=== PATIENT | male | born 1975 | race Two or more races ===

== ENCOUNTER 2021-09-26 10:08 | Outpatient (REF) | payer MEDICAID, SELFPAY ==
[2021-09-26 11:53] LABS: MANUAL DIFF FLAG NO
[2021-09-26 12:02] LABS: Basophils Percent Auto 0.4 % (0-2); Eosinophils Absolute Auto 0.3 X10*3/uL (0.0-0.4); Eosinophils Percent Auto 2.8 % (0-4); Hematocrit 44.3 % (42.0-52.0); Imm Gran Abs Auto 0.04 X10*3/uL (0.00-0.03); Imm Gran Pct Auto 0.4 % (0.0-0.4); Lymphocytes Absolute Auto 1.9 X10*3/uL (1.2-4.9); Mean Corpuscular HGB Conc 33.9 g/dl (31.0-36.0); Mean Corpuscular Hemoglobin 30.2 pg (27.0-33.0); Mean Corpuscular Volume 89.3 fL (80.0-98.0); Mean Platelet Volume 9.7 fL (9.4-12.4); Monocytes Absolute Auto 0.5 X10*3/uL (0.1-1.2); Monocytes Percent Auto 5.2 % (2-11); Neutrophils Absolute Auto 6.4 x10*3/uL (2.0-8.3); Neutrophils Percent Auto 70.2 % (45-73); Platelet Count 243 X10*3/uL (160-400); Red Blood Count 4.96 X10*6/uL (4.60-5.80); Red Cell Distribution Width 13.3 % (11.0-16.0); White Blood Count 9.1 X10*3/uL (4.8-10.8)
[2021-09-26 12:36] LABS: Alanine Aminotransferase 26 U/L (0-40); Albumin Level 4.3 g/dL (3.5-5.0); Alkaline Phosphatase 86 U/L (39-117); Anion Gap 13 (12-20); Aspartate Amino Transferase 19 U/L (5-37); Bilirubin Total 0.3 mg/dL (0.0-1.0); Blood Urea Nitrogen 7 mg/dL (9-16); Calcium 9.4 mg/dL (8.4-10.2); Carbon Dioxide 27 mmol/L (22-29); Chloride 106 mmol/L (96-108); Estimated Glomerular Filt Rate > 60; Glucose Random 109 mg/dL (60-115); Potassium 4.7 mmol/L (3.3-5.1); Sodium 141 mmol/L (135-145); Total Protein 7.2 g/dL (6.5-8.0)
== END 2021-09-26 10:09 | disposition home or self-care (01) ==
LOC: HO.LAB 10:08
PROVIDERS: PCP Nurse Practitioner; Referring Provider Nurse Practitioner; Visit Provider Nurse Practitioner
DX: Z01.818 Encounter for other preprocedural examination (principal)
CPT/HCPCS: 36415; 80053; 85025; 99202

== ENCOUNTER 2022-06-05 10:09 | Day surgery (SDC) | payer MEDICAID, SELFPAY ==
[2022-01-24 12:13] VITALS: BMI 33.2
--- NOTE | 2022-01-29 12:20 | HO.ANESPROP2 ---
HPI - Anesthesia Eval Consult details Narrative: 46yo M for Colonoscopy Suboxone daily PMFSH Active Problems Active Problems: All Active Problems (Updated 01/24/22 @ 12:03 by Delmis Cho, RN) Colon cancer screening (Acute) Past Medical History Medical History (Updated 01/24/22 @ 12:03 by Delmis Cho, RN) Anxiety and depression Bipolar disorder GERD (gastroesophageal reflux disease) Opioid dependence Smoker Umbilical hernia Surgical History Surgical History (Updated 01/24/22 @ 12:13 by Delmis Cho RN) No pertinent past surgical history Social History Social History Are you a primary progressive care nurse to a significant other at home: No Do you presently have visiting nurse or other home services: No Patient Tobacco Use Status: Current everyday Tobacco user Tobacco use type: Cigarette Cigarette Packs Per Day: 0.5 Cigarettes Per Day: 10.0 Years Smoked: since 16 yrs old Smoked in Last 30 Days: Yes Patient Interested in Nicotine Replacement: Yes Use of substances other than those prescribed or required for medical reasons: Yes Substance Use Type Other:: Hx opioid abuse- on Suboxone Substance Use Frequency: Daily Have you been hit, kicked, punched, or otherwise hurt by someone within the past year? If so, by whom?: No Are you DNR?: No Advance Directives: No Advance Directives Information Provided: No Advance Directives on File: No Recently lost weight without trying: No Eating poorly because of decreased appetite: No Nutrition Risks: No Nutritional Risk Meds Allergies Allergy/AdvReac Type Severity Reaction Status Date / Time No Known Allergies Allergy Verified 01/24/22 11:57 Home Medications Medication Instructions Recorded Confirmed Last Taken Type buprenorphine 8 mg-naloxone 2 mg 10 mg SUBLINGUAL DAILY 09/26/21 01/24/22 Unknown History sublingual film (Suboxone) doxepin 150 mg capsule 150 mg PO BEDTIME 09/26/21 01/24/22 Unknown History famotidine 20 mg tablet 20 mg PO BID 09/26/21 01/24/22 Unknown History naloxone 4 mg/actuation nasal 0 spray INTRANASAL 09/26/21 Unknown History spray (Narcan) nicotine (polacrilex) 4 mg buccal 4 mg PO Q2H PRN 09/26/21 01/24/22 Unknown History lozenge paroxetine HCl 20 mg tablet 20 mg PO DAILY 09/26/21 01/24/22 Unknown History risperidone 3 mg tablet 3 mg PO BEDTIME 09/26/21 Unknown History sertraline 100 mg tablet 100 mg PO QAM 09/26/21 01/24/22 Unknown History albuterol sulfate 90 mcg/actuation 2 puff PO Q4-6H PRN 01/24/22 01/24/22 Unknown History aerosol inhaler (ProAir HFA) Exam Exam Date and Time: January 29, 2022 1220 Height,Weight and Vital Signs: Height 5 ft 7 in Weight 96.162 kg Narrative Narrative: Laboratory Tests 09/26/21 09/26/21 11:51 11:51 WBC 9.1 Hgb 15.0 Hct 44.3 Plt Count 243 Sodium 141 Potassium 4.7 Chloride 106 Carbon Dioxide 27 BUN 7 L Creatinine 0.82 Assessment and Plan Assessment Anesthesia Assessment: Chart Reviewed
--- NOTE | 2022-01-30 08:43 | PC.NURSE ---
Patient contacted via phone yesterday w/ assistance of [facility] regarding procedure time and arrival time. Due here 0815, I have attempted to call as of 829 x2, no answer, voice mail is not set up.
--- NOTE | 2022-01-30 10:08 | PC.NURSE ---
Patient called and spoke with [employer]. Patient is cancelling procedure and will contact the office to reschedule.
--- NOTE | 2022-06-04 09:38 | HO.ANESPROP2 ---
Documented by User: Mena Hussein NP 06/04/22 09:38 HPI - Anesthesia Eval Consult details Narrative: 47yo M for Colonoscopy Suboxone daily PMFSH Active Problems Active Problems: All Active Problems (Updated 01/24/22 @ 12:03 by Delmis Cho RN) Colon cancer screening (Acute) Past Medical History Medical History Anxiety and depression Bipolar disorder GERD (gastroesophageal reflux disease) Opioid dependence Smoker Umbilical hernia Surgical History Surgical History No pertinent past surgical history Social History Social History Are you a primary career and technology education teacher to a significant other at home: No Do you presently have visiting nurse or other home services: No Patient Tobacco Use Status: Current everyday Tobacco user Tobacco use type: Cigarette Cigarette Packs Per Day: 0.5 Cigarettes Per Day: 10.0 Years Smoked: since 16 yrs old Smoked in Last 30 Days: Yes Patient Interested in Nicotine Replacement: No Use of substances other than those prescribed or required for medical reasons: Yes Substance Use Type Other:: Hx opioid abuse- on Suboxone Substance Use Frequency: Daily Have you been hit, kicked, punched, or otherwise hurt by someone within the past year? If so, by whom?: No Are you DNR?: No Advance Directives: No Advance Directives Information Provided: Yes Advance Directives on File: No Recently lost weight without trying: No Eating poorly because of decreased appetite: No Nutrition Risks: No Nutritional Risk Meds Allergies Allergy/AdvReac Type Severity Reaction Status Date / Time No Known Allergies Allergy Verified 06/05/22 10:29 Home Medications Medication Instructions Recorded Confirmed Last Taken Type buprenorphine 8 mg-naloxone 2 mg 10 mg sublingual DAILY 09/26/21 01/24/22 Unknown History sublingual film (Suboxone) doxepin 150 mg capsule 150 mg PO BEDTIME 09/26/21 01/24/22 Unknown History famotidine 20 mg tablet 20 mg PO BID indigestion 09/26/21 01/24/22 Unknown History naloxone 4 mg/actuation nasal 0 spray intranasal 09/26/21 Unknown History spray (Narcan) nicotine (polacrilex) 4 mg buccal 4 mg PO Q2H PRN Smoking Cessation 09/26/21 01/24/22 Unknown History lozenge paroxetine HCl 20 mg tablet 20 mg PO DAILY 09/26/21 01/24/22 Unknown History risperidone 3 mg tablet 3 mg PO BEDTIME 09/26/21 Unknown History sertraline 100 mg tablet 100 mg PO QAM 09/26/21 01/24/22 Unknown History albuterol sulfate 90 mcg/actuation 2 puff PO Q4-6H PRN dyspnea 01/24/22 01/24/22 Unknown History aerosol inhaler (ProAir HFA) Exam Exam Date and Time: June 04, 2022 0938 Height,Weight and Vital Signs: Height 5 ft 7 in Weight 96.162 kg Assessment and Plan Assessment Anesthesia Assessment: Chart Reviewed Documented by User: Cali Dias MD 06/05/22 11:06 [facility] Past Medical History Medical History Anxiety and depression Bipolar disorder GERD (gastroesophageal reflux disease) Opioid dependence Smoker Umbilical hernia Family History Family history of problems with anesthesia: No Surgical History Surgical History No pertinent past surgical history History of Problems with Anesthesia: No Social History Social History Are you a primary career and technology education teacher to a significant other at home: No Do you presently have visiting nurse or other home services: No Patient Tobacco Use Status: Current everyday Tobacco user Tobacco use type: Cigarette Cigarette Packs Per Day: 0.5 Cigarettes Per Day: 10.0 Years Smoked: since 16 yrs old Smoked in Last 30 Days: Yes Patient Interested in Nicotine Replacement: No Use of substances other than those prescribed or required for medical reasons: Yes Substance Use Type Other:: Hx opioid abuse- on Suboxone Substance Use Frequency: Daily Have you been hit, kicked, punched, or otherwise hurt by someone within the past year? If so, by whom?: No Are you DNR?: No Advance Directives: No Advance Directives Information Provided: Yes Advance Directives on File: No Recently lost weight without trying: No Eating poorly because of decreased appetite: No Nutrition Risks: No Nutritional Risk Meds Allergies Allergy/AdvReac Type Severity Reaction Status Date / Time No Known Allergies Allergy Verified 06/05/22 10:29 Home Medications Medication Instructions Recorded Confirmed Last Taken Type buprenorphine 8 mg-naloxone 2 mg 10 mg sublingual DAILY 09/26/21 01/24/22 Unknown History sublingual film (Suboxone) doxepin 150 mg capsule 150 mg PO BEDTIME 09/26/21 01/24/22 Unknown History famotidine 20 mg tablet 20 mg PO BID indigestion 09/26/21 01/24/22 Unknown History naloxone 4 mg/actuation nasal 0 spray intranasal 09/26/21 Unknown History spray (Narcan) nicotine (polacrilex) 4 mg buccal 4 mg PO Q2H PRN Smoking Cessation 09/26/21 01/24/22 Unknown History lozenge paroxetine HCl 20 mg tablet 20 mg PO DAILY 09/26/21 01/24/22 Unknown History risperidone 3 mg tablet 3 mg PO BEDTIME 09/26/21 Unknown History sertraline 100 mg tablet 100 mg PO QAM 09/26/21 01/24/22 Unknown History albuterol sulfate 90 mcg/actuation 2 puff PO Q4-6H PRN dyspnea 01/24/22 01/24/22 Unknown History aerosol inhaler (ProAir HFA) Exam Airway Mallampati Class: III TM Dist: >3cm Neck ROM: Full Heart: rrr Lungs: slight wheezes Assessment and Plan Final Anesthetic Review Family History of Problems with Anesthesia: No History of Problems with Anesthesia: No ASA Class: II Final Preanesthetic Review: No Changes in Pt Med Stat, Meds/Allgs Chart Reviewed, Consent Obtained/Reviewed and Anes Risks/Benef Reviewed
[2022-06-05 10:38] LABS: Amphetamine Screen Urine Not Detected (Not Detect); Barbiturates, Urine Not Detected (Not Detect); Benzodiazepines Screen Urine Not Detected (Not Detect); Cannabinoid Screen Urine POSITIVE (Not Detect); Cocaine Screen Urine Not Detected (Not Detect); Fentanyl, urine Not Detected (Not Detect); Opiate Screen Urine Not Detected (Not Detect); Phencyclidine Screen Urine Not Detected (Not Detect)
[2022-06-05] MEDS: Lactated Ringers 1,000 ML 100 ML IVCONT (10:45)
[2022-06-05] MEDS: Sodium Phosphate,Mono-Dibasic 133 ML ENEMA PR (10:45)
[2022-06-05 10:49] VITALS: BP 149/80; PULSE 96; RESP 18; TEMP 36.6; O2SAT 95
--- NOTE | 2022-06-05 10:53 | P.HPSUR_ITS ---
Pre-Procedural Eval Section A Date of Service: 06/05/22 Section B Chief Complaint: Screening Relevant Family History (Specify if Yes): No Relevant Social History: Tobacco Use Present Medications: see Short Stay Collaborative assessment Medical History: Significant History (Bipolar disorder/ anxiety /depression Opioid dependence -Suboxone therapy Smoker Umbilical hernia GERD) History of Previous Operations: No relevant previous surgery Allergies: Allergies Allergy/AdvReac Type Severity Reaction Status Date / Time No Known Allergies Allergy Verified 06/05/22 10:29 Review of Systems Sugical H&P ROS: Negative: Constitution, Cardiovascular, Respiratory, Ne urological, Psychiatric, Hem-Onc, Allergic/Immunologic, Gastrointestinal, Genitourinary, Musculoskeletal, Integumentary, Endocrine and Eyes/Ears/Nose/Throat Exam Surgical H&P Exam: Normal: HEENT, Normal: Heart, Normal: Lungs, Normal: Extremities, Normal: Abdomen, Normal: Skin and Normal: Neurological Plan Diagnosis/Plan: Unchanged I have reviewed the history and physical and performed a pertinent physical examination on my patient. No changes have occurred unless specified.
--- NOTE | 2022-06-05 11:43 | W.PM.OPN ---
Operative Note Operative Note Date of Service: 06/05/22 Narrative: Operative Information Procedure Description: Colonoscopy Indication: screening Anesthesia: MAC COLONOSCOPY Instrument: Olympus variable stiffness pediatric scope 190L Colonoscopy Monitoring: Vital signs and clinical assessment, continuous EKG monitoring, Pulse oximetry, Carbon Dioxide monitoring and blood pressure monitoring were done throughout the procedure. Colon withdrawal time was 15 minutes. Procedure: The patient was placed in the left lateral decubitis position and pre-procedure medications were administered. After a digital rectal examination of the ano-rectum, the video colonoscope was inserted into the rectum and advanced through the colon to the cecum/TI. The colonoscope was slowly withdrawn in a retrograde panoramic fashion and the colon mucosa was carefully examined including a retroflexed view of the rectum. Findings and interventions are described below. Procedure Difficulty: easy Findings: Terminal Ileum-not intubated Cecum:normal Ascending Colon: normal Transverse Colon -normal Descending Colon: 14 mm sessile polyp removed with cold snare Sigmoid Colon: x 3 sessile polyps 8-10 mm removed with cold snare, x1 clip applied to one area for hemostasis. Rectum: Retroflexion with small internal hemorrhoids, grade I Anorectum - normal Colon preparation: [place] Bowel Preparation Scale Right colon; 0 Transverse colon: 1 Left colon; 2 (0 = Unprepared colon segment with mucosa not seen due to solid stool that cannot be cleared. 1 = Portion of mucosa of the colon segment seen, but other areas of the colon segment not well seen due to staining, residual stool and/or opaque liquid. 2 = Minor amount of residual staining, small fragments of stool and/or opaque liquid, but mucosa of colon segment seen well. 3 = Entire mucosa of colon segment seen well with no residual staining, small fragments of stool or opaque liquid) Impression and Post Procedure Diagnosis: polyps internal hemorrhoids diverticular disease Plan: High fiber diet leaflet Avoid straining at stool, epsom salts and sitz bath, anusol supps or cream Repeat Colonoscopy in 6-12 months due to poor prep or earlier if clinically indicated Above findings were reviewed with the patient and relevant handouts were provided if indicated.
[2022-06-05 11:47] VITALS: BP 122/84; PULSE 88; RESP 16; TEMP 36.7; O2SAT 97
[2022-06-05 12:02] VITALS: BP 114/86; PULSE 90; RESP 18; TEMP 36.7; O2SAT 95
== END 2022-06-05 12:20 | disposition home or self-care (01) ==
PROVIDERS: Nurse Practitioner; PCP Nurse Practitioner; Visit Provider Internal Medicine Gastroenterology
PROC: 0DJD8ZZ Inspection of Lower Intestinal Tract, Via Natural or Artificial Opening Endoscopic (ICD-10-PCS; CPT 45378; principal; 2022-06-05 10:50)
DX: Z12.11 Encounter for screening for malignant neoplasm of colon (principal); D12.4 Benign neoplasm of descending colon; K63.5 Polyp of colon; K57.30 Diverticulosis of large intestine without perforation or abscess without bleeding; K64.8 Other hemorrhoids; K64.0 First degree hemorrhoids; K21.9 Gastro-esophageal reflux disease without esophagitis; F31.9 Bipolar disorder, unspecified; R62.50 Unspecified lack of expected normal physiological development in childhood; F11.20 Opioid dependence, uncomplicated; F17.210 Nicotine dependence, cigarettes, uncomplicated
CPT/HCPCS: 45385; 80307; 88305

== ENCOUNTER → 2022-07-13 13:34 | Outpatient (BNVA) | payer MEDICAID, SELFPAY | PROVIDERS: PCP Nurse Practitioner; Referring Provider Nurse Practitioner; Visit Provider Nurse Practitioner | DX: D12.4 Benign neoplasm of descending colon (principal); K63.5 Polyp of colon; K64.0 First degree hemorrhoids; Z98.890 Other specified postprocedural states | CPT/HCPCS: 99212 ==

== ENCOUNTER → 2022-10-04 14:43 | Outpatient (BNVA) | payer MEDICAID, SELFPAY | PROVIDERS: PCP Nurse Practitioner; Visit Provider Surgery | DX: K43.9 Ventral hernia without obstruction or gangrene (principal) | CPT/HCPCS: 99202 ==

== ENCOUNTER → 2022-11-12 06:16 | Day surgery (SDC) | payer MEDICAID, SELFPAY ==
[2022-11-07 11:02] VITALS: BMI 34.2
[2022-11-12 07:58] VITALS: BP 108/58; PULSE 55; RESP 18; TEMP 36.7; O2SAT 96
[2022-11-12] MEDS: Lactated Ringers 1,000 ML 100 ML IVCONT (08:03)
[2022-11-12 08:07] LABS: Amphetamine Screen Urine Not Detected (Not Detect); Barbiturates, Urine Not Detected (Not Detect); Benzodiazepines Screen Urine Not Detected (Not Detect); Cannabinoid Screen Urine POSITIVE (Not Detect); Cocaine Screen Urine Not Detected (Not Detect); Fentanyl, urine POSITIVE (Not Detect); Opiate Screen Urine Not Detected (Not Detect); Phencyclidine Screen Urine Not Detected (Not Detect)
--- NOTE | 2022-11-12 08:25 | PC.NURSE ---
Dr. Zayas and Joseph from customs entry writer services explained to patient that toxicology screen was positive for fentanyl and that surgery needs to be cancelled today. Patient educated regarding fentanyl.
== END ==
PROVIDERS: Anesthesiology; PCP Registered Nurse; Visit Provider Surgery
DX: K43.9 Ventral hernia without obstruction or gangrene (principal); Z53.8 Procedure and treatment not carried out for other reasons; R82.5 Elevated urine levels of drugs, medicaments and biological substances
CPT/HCPCS: 80307; J0690; J2250; J3010

== ENCOUNTER 2022-12-17 05:38 | Day surgery (SDC) | payer MEDICAID, SELFPAY ==
[2022-12-11 15:31] VITALS: BMI 34.2
[2022-12-17] VITALS (7 sets, daily range): BP systolic 112–140; BP diastolic 68–91; PULSE 65–83; RESP 14–18; TEMP 36.3–36.6; O2SAT 95–98
[2022-12-17 06:34] LABS: Amphetamine Screen Urine Not Detected (Not Detect); Barbiturates, Urine Not Detected (Not Detect); Benzodiazepines Screen Urine Not Detected (Not Detect); Cannabinoid Screen Urine POSITIVE (Not Detect); Cocaine Screen Urine Not Detected (Not Detect); Fentanyl, urine Not Detected (Not Detect); Opiate Screen Urine Not Detected (Not Detect); Phencyclidine Screen Urine Not Detected (Not Detect)
--- NOTE | 2022-12-17 07:06 | P.HPSUR_ITS ---
Pre-Procedural Eval Section A Date of Service: 12/17/22 The patient is an INPATIENT: No Changes since office visit: Yes Patient answered all questions; No Cold of Flu in the past 2 weeks, No New Medical Problems and No Changes in Medication The History & Physical has been completed within 30 days and I have reviewed it.: No Section B Chief Complaint: Ventral hernia without obstruction or gangrene Details of Present Illness: No changes since original examination Relevant Family History (Specify if Yes): No Relevant Social History: Tobacco Use Medical History: Significant History (bipolar, opioid dependency, GERD) History of Previous Operations: No relevant previous surgery Allergies: Allergies Allergy/AdvReac Type Severity Reaction Status Date / Time No Known Allergies Allergy Verified 10/04/22 15:23 Review of Systems Sugical H&P ROS: Negative: Constitution, Cardiovascular, Respiratory, Neurological, Psychiatric, Hem-Onc, Allergic/Immunologic, Gastrointestinal, Genitourinary, Musculoskeletal, Integumentary, Endocrine and Eyes/Ears/Nose/Throat Exam Surgical H&P Exam: Normal: HEENT, Normal: Heart, Normal: Lungs, Normal: Ext remities, Normal: Abdomen, Normal: Skin and Normal: Neurological Plan Diagnosis/Plan: Unchanged I have reviewed the history and physical and performed a pertinent physical examination on my patient. No changes have occurred unless specified. Time Spent With Patient Time: Total time managing care of this patient today ____ minutes.
--- NOTE | 2022-12-17 07:47 | P.CONAN_ITS ---
COUNT INCLUDES THE [facility] Active Problems Active Problems: All Active Problems (Updated 10/05/22 @ 13:46 by Dru Lawson MD) Colon cancer screening (Acute) Ventral hernia (Acute) Past Medical History Medical History (Updated 10/05/22 @ 13:46 by Dru Lawson MD) Anxiety and depression Bipolar disorder GERD (gastroesophageal reflux disease) Opioid dependence Smoker Umbilical hernia Family History Family History Paternal Grandmother Cancer of unknown origin Family history of problems with anesthesia: No Surgical History Surgical History (Updated 11/07/22 @ 10:48 by Sarah Lovelace RN) H/O colonoscopy History of Problems with Anesthesia: No Social History Social History (Updated 12/11/22 @ 15:23 by Sarah Lovelace RN) Are you a primary health care legal assistant to a significant other at home: No Do you presently have visiting nurse or other home services: No Alcohol intake: never Patient Tobacco Use Status: Current everyday Tobacco user Tobacco use type: Cigarette Cigarette Packs Per Day: 0.5 Cigarettes Per Day: 10 Years Smoked: 31 Use of substances other than those prescribed or required for medical reasons: Yes Substance Use Type: Marijuana and Opiates Substance Use Type Other:: current marijuana/opiates in past-taking suboxone Substance Use Frequency: Chronic Longstanding Have you been hit, kicked, punched, or otherwise hurt by someone within the past year? If so, by whom?: No Are you DNR?: No Advance Directives: No Advance Directives Information Provided: Yes (brochure mailed) Advance Directives on File: No Recently lost weight without trying: No Eating poorly because of decreased appetite: No Nutrition Risks: No Nutritional Risk Meds Allergies Allergy/AdvReac Type Severity Reaction Status Date / Time No Known Allergies Allergy Verified 10/04/22 15:23 Active Medications: Current Medications Lactated Ringer's (Lr) 1,000 mls @ 100 mls/hr IVCONT .Q10H [facility] Home Medications Medication Instructions Recorded Confirmed Last Taken Type buprenorphine 8 mg-naloxone 2 mg 8 mg sublingual DAILY 09/26/21 12/12/22 12/17/22 History sublingual film (Suboxone) doxepin 150 mg capsule 150 mg PO BEDTIME 09/26/21 12/12/22 Unknown History famotidine 20 mg tablet 20 mg PO BID indigestion 09/26/21 12/12/22 11/12/22 History naloxone 4 mg/actuation nasal 1 spray intranasal ONCE 09/26/21 12/12/22 Unknown History spray (Narcan) nicotine (polacrilex) 4 mg buccal 4 mg PO Q2H PRN Smoking Cessation 09/26/21 12/12/22 Unknown History lozenge paroxetine HCl 20 mg tablet 20 mg PO DAILY 09/26/21 12/12/22 11/12/22 History risperidone 3 mg tablet 3 mg PO BEDTIME 09/26/21 12/12/22 Unknown History sertraline 100 mg tablet 100 mg PO QAM 09/26/21 12/12/22 12/17/22 History albuterol sulfate 90 mcg/actuation 2 puff PO Q4-6H PRN dyspnea 01/24/22 12/12/22 Unknown History aerosol inhaler (ProAir HFA) bupropion HCl 300 mg 24 hr tablet, 300 mg PO QAM 07/13/22 12/12/22 12/17/22 History extended release multivitamin-ferrous 1 tab PO DAILY 07/13/22 12/12/22 Unknown History fumarate-folic acid 18 mg-400 mcg tablet (Certavite-Antioxidant) salmeterol 50 mcg/dose blister 1 inh inhalation BID 07/13/22 12/12/22 11/12/22 History powder for inhalation (Serevent Diskus) tiotropium bromide 18 mcg capsule 1 cap inhalation DAILY 07/13/22 12/12/22 12/17/22 History with inhalation device (Spiriva with HandiHaler) Exam Exam Date and Time: December 17, 2022 0747 Height,Weight and Vital Signs: Height 5 ft 7 in Weight 99.337 kg Pertinent Lab Results Pertinent Lab Results: Laboratory Tests 12/17/22 06:11 Urine Opiates Screen Not Detected Urine Fentanyl Screen Not Detected Ur Barbiturates Screen Not Detected Ur Phencyclidine Scrn Not Detected Ur Amphetamines Screen Not Detected U Benzodiazepines Scrn Not Detected Urine Cocaine Screen Not Detected U Marijuana (THC) Screen POSITIVE H Airway Mallampati Class: II (Missing top 4 teeth, denies anything loose) TM Dist: >3cm Neck ROM: Full Heart: rrr Lungs: cta Assessment and Plan Assessment Anesthesia Assessment: Anesthesia Plan Discussed and Chart Reviewed Final Anesthetic Review Family History of Problems with Anesthesia: No History of Problems with Anesthesia: No NPO: Yes ASA Class: II Final Preanesthetic Review: No Changes in Pt Med Stat, Meds/Allgs Chart Reviewed and Consent Obtained/Reviewed Patient Risk: Intermediate Procedure Risk: Intermediate Anesthetic Plan Disposition: Standard PACU
[2022-12-17] MEDS: Lactated Ringers 1,000 ML 100 ML IVCONT (07:54)
--- NOTE | 2022-12-17 10:40 | P.OP_ITS ---
Operative Note Operative Note Date of Service: 12/17/22 Narrative: Preoperative diagnosis:Ventral hernia Postoperative diagnosis:same Procedure:Repair of ventral hernia with mesh Surgeon: Dru Lawson MD Drupal Architect: Jayce Amin MD; Nano Whitney PA-C Anesthesia: general LMA Indications for procedure: 47-year-old male patient presenting with a palpable lump in the upper abdomen which increases in size with lifting and straining. The hernia does not reduce completely. Operative findings: Patient found to have a 4 cm, incarcerated ventral hernia containing incarcerated omental fat Specimen: hernia sac Estimated blood loss: 10 mL Complications: none Procedure details: patient was brought to the OR placed in a supine position. After administering general anesthesia the patient's abdomen was prepped with ChloraPrep and draped in a sterile fashion. A surgical time-out was called the consent confirmed. Patient received preoperative antibiotics and Venodyne boots were in place. Local anesthesia consisting of 0.5% Sensorcaine with epinephrine was then infiltrated in the midline. A midline incision was then created over the palpable lump. This carried out through subcutaneous tissue up to the hernia sac. The hernia sac was then dissected circumferentially. The hernia sac was then excised and sent to pathology. Incarcerated omental fat was then free from the hernia sac. Peritoneum was then closed using a running 0 Polysorb suture. A preperitoneal space was then created circumferentially. An 8 cm round Ventralex mesh was then obtained. This was deployed within the preperitoneal space and secured in 4 quadrants using a 1 Tycron suture. Fascia was then closed over the mesh using [id number] 1 Tycron sutures. Zenrelef was then applied approximately 4 mL. subcutaneous tissue and dermis were then reapproximated using interrupted 3-0 Polysorb sutures. Skin was closed using a running subcuticular 4-0 Polysorb suture. Steri-Strips, 2 x 2 gauze and Tegaderm were then applied. The patient tolerated the procedure well. Sponge, instrument, needle counts reported as correct. The patient was transferred to PACU in stable condition.
[2022-12-17] MEDS: Ketorolac Tromethamine 30 MG/ML VIAL 15 MG IVPUSH (11:31)
== END 2022-12-17 12:22 | disposition home or self-care (01) ==
PROVIDERS: Anesthesiology; PCP Registered Nurse; Visit Provider Surgery
PROC: (CPT 49594; principal; 2022-12-17 09:10)
DX: K43.9 Ventral hernia without obstruction or gangrene (principal); K21.9 Gastro-esophageal reflux disease without esophagitis; F41.8 Other specified anxiety disorders; F11.20 Opioid dependence, uncomplicated; Z79.899 Other long term (current) drug therapy; F17.210 Nicotine dependence, cigarettes, uncomplicated
CPT/HCPCS: 49594; 80307; 88302; C1781; C9088; J0690; J1100; J1885; J2250; J2405; J3010

== ENCOUNTER → 2022-12-25 09:40 | Outpatient (BNVA) | payer MEDICAID, SELFPAY | PROVIDERS: PCP Registered Nurse; Visit Provider Surgery | DX: Z13.89 Encounter for screening for other disorder (principal) ==

== ENCOUNTER → 2023-01-22 08:37 | Outpatient (BNVA) | payer MEDICAID, SELFPAY | PROVIDERS: PCP Registered Nurse; Visit Provider Surgery ==

== ENCOUNTER 2024-07-28 11:17 | Outpatient (REF) | payer OTHER, SELFPAY ==
[2024-07-28 13:50] LABS: Alanine Aminotransferase 15 U/L (0-40); Albumin Level 4.4 g/dL (3.5-5.0); Alkaline Phosphatase 75 U/L (39-117); Anion Gap 10 (12-20); Aspartate Amino Transferase 17 U/L (5-37); Bilirubin Direct 0.1 mg/dL (0.0-0.5); Bilirubin Total 0.4 mg/dL (0.0-1.0); Blood Urea Nitrogen 9 mg/dL (9-16); Calcium 9.3 mg/dL (8.4-10.2); Carbon Dioxide 27 mmol/L (22-29); Chloride 107 mmol/L (96-108); Cholesterol 162 mg/dL (<200); Estimated Glomerular Filt Rate > 60; Glucose Random 111 mg/dL (60-115); HDL Cholesterol 38 mg/dL (>40); LDL Cholesterol Calculated 99 mg/dL (<100); Sodium 140 mmol/L (135-145); Total Protein 7.5 g/dL (6.5-8.0); Triglycerides 128 mg/dL (<150)
[2024-07-28 16:02] LABS: Estimated Average Glucose 94 mg/dL; Hemoglobin A1c % 4.9 % (<6.0); Total Hemoglobin (HGBA1C) 3527.1362 umol/L
[2024-07-29 08:25] LABS: HBS Num1 2.04 mIU/mL (0-7.99); HBsAGNum1 0.37 S/CO (0.00-0.99); HIV AB/AG Nonreactive (Nonreactive); HIV Num 1 0.04 S/CO (0.00-0.99); Hepatitis B Core Antibody Nonreactive (Nonreactive); Hepatitis B Surface Antigen Negative (Negative); ~Hepatitis B Surface Antibody NONREACTIVE (Nonreactive)
[2024-07-29 08:26] LABS: Hepatitis A Antibody IgG REACTIVE (Nonreactive); ~Hepatitis A Antibody IgG 2.93 S/CO (0.00-0.99)
[2024-07-29 15:58] LABS: RPR Rapid Plasma Reagin NON-REACTIVE (NON-REACTIVE)
[2024-07-30 00:13] LABS: HCV Log PCR <1.18 NOT DETECTED Log IU/mL (NOT DETECTED); HepC Viral Load <15 NOT DETECTED IU/mL (NOT DETECTED)
[2024-07-31 16:12] LABS: TS Negative Control Passed; TS Panel A 1; TS Panel B 0; TS Positive Control Passed; TSpotTB Negative (Negative)
== END 2024-07-28 11:18 | disposition home or self-care (01) ==
LOC: HO.HHCL 11:17
PROVIDERS: Referring Provider Nurse Practitioner Primary Care; Visit Provider Emergency Medicine
DX: F11.20 Opioid dependence, uncomplicated (principal); E87.1 Hypo-osmolality and hyponatremia
CPT/HCPCS: 36415; 80048; 80061; 80076; 83036; 86481; 86592; 86704; 86706; 86708; 87340; 87389; 87522